=== PATIENT | male | born 1980 | race Caucasian/White ===

== ENCOUNTER 2018-02-03 09:25 | Emergency (ER) | payer OTHER ==
[2018-02-03] MEDS: ASPIRIN 325 MG TAB PO ×2 (09:38→13:22)
[2018-02-03 09:48] LABS: ADD MAN DIFF? NO
[2018-02-03 09:53] LABS: BASOPHILS % 0.2 % (0.0-2.0); HEMATOCRIT 43.2 % (42.0-52.0); LYMPHOCYTES # 0.7 10^3/ul (0.8-2.9); LYMPHOCYTES % 5.5 % (15.0-51.0); MEAN CORPUSCULAR HEMOGLOBIN 28.3 pg (29.0-33.0); MEAN CORPUSCULAR HGB CONC 32.4 g/dl (32.0-37.0); MEAN CORPUSCULAR VOLUME 87.4 fl (82.0-101.0); MEAN PLATELET VOLUME 11.4 fl (7.4-10.4); MONOCYTE # 0.5 10^3/ul (0.3-0.9); MONOCYTES % 3.4 % (0.0-11.0); NEUTROPHIL # 12.1 10^3/ul (1.6-7.5); NEUTROPHILS % 90.5 % (39.0-77.0); PLATELET COUNT 195 10^3/UL (140-415); RED BLOOD COUNT 4.94 10^6/ul (4.70-6.10); RED CELL DISTRIBUTION WIDTH 13.2 % (11.5-14.5)
[2018-02-03 09:53] LABS: WHITE BLOOD COUNT 13.4 10^3/ul (4.8-10.8)
[2018-02-03 10:12] LABS: INR 0.95; PROTIME 12.8 Sec (11.9-14.9)
[2018-02-03 10:15] LABS: ALANINE AMINOTRANSFERASE 189 IU/L (13-69); ALBUMIN 4.3 g/dl (3.3-4.9); ALBUMIN/GLOBULIN RATIO 1.13; ALKALINE PHOSPHATASE 68 IU/L (42-121); ANION GAP 16 (8-16); ASPARTATE AMINO TRANSFERASE 101 IU/L (15-46); BILIRUBIN,INDIRECT 0.5 mg/dl (0-1.1); BILIRUBIN,TOTAL 0.5 mg/dl (0.2-1.3); BLOOD UREA NITROGEN 24 mg/dl (7-20); CALCIUM 9.8 mg/dl (8.4-10.2); CARBON DIOXIDE 29 mmol/L (21-31); CHLORIDE 104 mmol/L (97-110); CREATININE 1.03 mg/dl (0.61-1.24); GLUCOSE 115 mg/dl (70-220); POTASSIUM 4.8 mmol/L (3.5-5.1); SODIUM 144 mmol/L (135-144); TOTAL PROTEIN 8.1 g/dl (6.1-8.1)
[2018-02-03 10:26] LABS: TROPONIN-I 0.017 ng/ml (0.000-0.120)
[2018-02-03] MEDS: LORAZEPAM 2 MG INJ IV (10:33)
[2018-02-03 10:37] LABS: ETHANOL < 10.0 mg/dl; SALICYLATE < 1.0 mg/dl (5.0-30.0)
[2018-02-03 10:37] LABS: ACETAMINOPHEN < 10.0 ug/ml (10.0-30.0)
[2018-02-03 13:02] LABS: TROPONIN-I 0.015 ng/ml (0.000-0.120)
== END 2018-02-03 14:31 | disposition home or self-care (01) ==
LOC: E/R 09:25
DX: R07.9 Chest pain, unspecified (principal); R45.851 Suicidal ideations; R40.2142 Coma scale, eyes open, spontaneous, at arrival to emergency department; R40.2252 Coma scale, best verbal response, oriented, at arrival to emergency department; R40.2362 Coma scale, best motor response, obeys commands, at arrival to emergency department
CPT/HCPCS: 71045; 80053; 80307; 84484; 85025; 85610; 93005; 99285-25

== ENCOUNTER 2018-02-03 18:11 | Emergency (ER) | payer OTHER ==
[2018-02-03] MEDS: SOD CHLORIDE 0.9% 1,000 ML IV (21:08)
[2018-02-03] MEDS: ASPIRIN 325 MG TAB PO (21:08)
[2018-02-03] MEDS: LORAZEPAM 2 MG INJ IV (21:08)
[2018-02-03 21:12] LABS: ADD MAN DIFF? NO
[2018-02-03 21:18] LABS: WHITE BLOOD COUNT 11.9 10^3/ul (4.8-10.8)
[2018-02-03 21:18] LABS: BASOPHILS % 0.2 % (0.0-2.0); EOSINOPHILS % 0.1 % (0.0-7.0); HEMATOCRIT 42.6 % (42.0-52.0); HEMOGLOBIN 14.1 g/dl (14.0-18.0); LYMPHOCYTES # 1.3 10^3/ul (0.8-2.9); LYMPHOCYTES % 10.7 % (15.0-51.0); MEAN CORPUSCULAR HEMOGLOBIN 28.8 pg (29.0-33.0); MEAN CORPUSCULAR HGB CONC 33.1 g/dl (32.0-37.0); MEAN CORPUSCULAR VOLUME 87.1 fl (82.0-101.0); MEAN PLATELET VOLUME 11.3 fl (7.4-10.4); MONOCYTE # 0.8 10^3/ul (0.3-0.9); MONOCYTES % 6.7 % (0.0-11.0); NEUTROPHIL # 9.8 10^3/ul (1.6-7.5); PLATELET COUNT 194 10^3/UL (140-415); RED BLOOD COUNT 4.89 10^6/ul (4.70-6.10); RED CELL DISTRIBUTION WIDTH 13.6 % (11.5-14.5)
[2018-02-03 21:37] LABS: INR 0.93; PROTIME 12.6 Sec (11.9-14.9)
[2018-02-03 21:38] LABS: ALANINE AMINOTRANSFERASE 172 IU/L (13-69); ALBUMIN 4.3 g/dl (3.3-4.9); ALBUMIN/GLOBULIN RATIO 1.07; ALKALINE PHOSPHATASE 60 IU/L (42-121); ANION GAP 15 (8-16); ASPARTATE AMINO TRANSFERASE 88 IU/L (15-46); BILIRUBIN,INDIRECT 0.9 mg/dl (0-1.1); BILIRUBIN,TOTAL 0.9 mg/dl (0.2-1.3); BLOOD UREA NITROGEN 21 mg/dl (7-20); CALCIUM 9.5 mg/dl (8.4-10.2); CARBON DIOXIDE 30 mmol/L (21-31); CHLORIDE 99 mmol/L (97-110); CREATINE KINASE 409 IU/L (23-200); CREATININE 0.86 mg/dl (0.61-1.24); GLUCOSE 102 mg/dl (70-220); PARTIAL THROMBOPLASTIN TIME 30.3 Sec (23.0-35.0); POTASSIUM 3.4 mmol/L (3.5-5.1); SODIUM 141 mmol/L (135-144); TOTAL PROTEIN 8.3 g/dl (6.1-8.1)
[2018-02-03 21:49] LABS: B-TYPE NATRIURETIC PEPTIDE 216 PG/ML (0-125); CK INDEX 0.7; TROPONIN-I < 0.012 ng/ml (0.000-0.120)
== END 2018-02-03 23:53 | disposition home or self-care (01) ==
LOC: E/R 18:11
DX: M94.0 Chondrocostal junction syndrome [Tietze] (principal); F14.10 Cocaine abuse, uncomplicated; R40.2142 Coma scale, eyes open, spontaneous, at arrival to emergency department; R40.2252 Coma scale, best verbal response, oriented, at arrival to emergency department; R40.2362 Coma scale, best motor response, obeys commands, at arrival to emergency department; F17.210 Nicotine dependence, cigarettes, uncomplicated
CPT/HCPCS: 36415; 71045; 80053; 82550; 82553; 83880; 84484; 85025; 85610; 85730; 93005; 96374; 99285-25